=== PATIENT | male | born 1980 | race Caucasian/White ===

== ENCOUNTER 2017-08-11 02:43 | Emergency (ER) | payer SELFPAY ==
[~2017-08-11] VITALS: Ht 177.8 cm; Wt 160.3 kg
[~2017-08-11 02:43] MED LIST: ACET-1175 PO; ADVIN25/60 INH; ALBU1AER9 PO; AMOX1TAB43 PO; GFNSR600 PO; PRED10TA PO
[2017-08-11 02:45] VITALS: TEMP 36.9; Ht 177.8 cm; Wt 160.3 kg
[2017-08-11] MEDS ORDERED: METHYLPREDNISOLONE 125 MG VIAL IV STA (03:02)
[2017-08-11] MEDS ORDERED: ALBUT/IPRATROP 3MG/0.5MG NEB 3 ML VIAL INH ONE (03:15)
[2017-08-11] MEDS ORDERED: SODIUM CHLORIDE 0.9% 1000ML 1,000 ML IV ONE (03:15)
[2017-08-11 03:50] LABS: BASO % 0.2 %; BASO ABS # 0.01 K/uL (0-0.2); EOS % 4.4 %; EOS ABS # 0.27 K/uL (0-0.5); HEMATOCRIT 40.4 % (42-52); HEMOGLOBIN 14.3 g/dL (14.0-18.0); IG# 0.02 K/uL (0.00-0.02); LYMPH % 38.5 %; LYMPH ABS # 2.34 K/uL (1.2-3.4); MEAN CELL VOLUME 87.1 fL (80-100); MEAN CORPUSCULAR HEMOGLOBIN 30.8 pg (25-34); MEAN CORPUSCULAR HGB CONC 35.4 g/dl (32-36); MEAN PLATELET VOLUME 10.4 fL (7.4-10.4); MONO % 9.4 %; MONO ABS # 0.57 K/uL (0.11-0.59); NEUT % 47.2 %; NEUT ABS # 2.87 K/uL (1.4-6.5); PLATELET COUNT 175 K/uL (130-400); RED CELL DISTRIBUTION WIDTH CV 13.1 % (11.5-14.5); RED CELL DISTRIBUTION WIDTH SD 42.1 fL (36.4-46.3); WHITE BLOOD COUNT 6.08 K/uL (4.8-10.8)
[2017-08-11 03:52] VITALS: PULSE 79; O2SAT 98
[2017-08-11] MEDS ORDERED: LEVOFLOXACIN 750 MG TAB PO ONE (04:15)
[2017-08-11] MEDS ORDERED: LEVOFLOXACIN 250 MG TAB ONE (04:16)
[2017-08-11 04:24] LABS: ALBUMIN 3.6 gm/dl (3.4-5.0); CALCIUM 8.8 mg/dl (8.5-10.1); CREATININE 0.94 mg/dl (0.60-1.40); TOTAL PROTEIN 7.4 gm/dl (6.4-8.2)
[2017-08-11 04:30] LABS: POTASSIUM 4.1 mmol/L (3.5-5.1)
[2017-08-11] MEDS ORDERED: LEVO750T23 PO (05:04)
[2017-08-11] MEDS ORDERED: PRED20TA PO (05:04)
[2017-08-11 05:10] VITALS: BP 145/82; PULSE 103; O2SAT 94
--- NOTE | 2017-08-11 05:57 | EMERGENCY ROOM VISIT NOTE ---
History First contact with patient: 02:50 Chief Complaint: RESPIRATORY PROBLEMS Stated Complaint: TROUBLE BREATHING Nursing Triage Summary: Pt became SOB @ work. Pt denies any other discomforts. Pt has h/o sarcoidosis. History of Present Illness The patient is a 37 year old male who presents to the Emergency Room with complaints of chest tightness and shortness of breath that began worsening over the past one to 2 days. The patient has a long-standing history of bronchitis and asthma-like symptoms. 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 He has not had recent fever or chills, but has had a worsening cough. He has been using inhalers at home without relief of symptoms. The patient rates his discomfort an 8/10. Review of Systems More than 10 systems were reviewed and otherwise negative with the exception of history of present illness. Past Medical/Surgical History Medical Problems: (1) Bronchitis (2) Hypoxia (3) Sarcoid Family History No pertinent family history Social History Smoking Status: Current Every Day Smoker Alcohol Use: occasionally Marital Status: single Housing Status: lives with family Occupation Status: employed Current/Historical Medications Scheduled Levofloxacin (Levaquin), 1 TAB PO DAILY Prednisone (Prednisone), 0 PO DAILY Physical Exam Vital Signs Date Time Temp Pulse Resp B/P (MAP) Pulse Ox O2 Delivery O2 Flow Rate FiO2 08/11/17 05:10 103 22 145/82 94 Room Air 08/11/17 04:19 89 16 171/71 97 Mask 8.0 08/11/17 03:52 79 16 98 Room Air 08/11/17 03:43 83 08/11/17 02:45 36.9 89 20 152/85 96 Room Air Physical Exam VITALS: Vitals are noted on the nurse's note and reviewed by myself. Vital signs stable. GENERAL: Well-developed, well-nourished, white male, who is in no acute distress and resting comfortably. Patient is cooperative with the examination. HEAD: Normocephalic atraumatic. EARS: External ear normal. External auditory canals clear, tympanic membranes pearly montgmoery without erythema or effusion bilaterally. EYES: Pupils equal round and reactive to light and accommodation. Conjunctivae without injection, sclerae without icterus. Extraocular movements intact. NOSE: Patent, turbinates without inflammation or discharge. MOUTH: Mucous membranes moist. Tonsils are not enlarged. Pharynx without erythema, blood, or exudate. Uvula midline. Airway patent. NECK: Supple without nuchal rigidity. No lymphadenopathy. No thyromegaly. Cervical spine is nontender. HEART: Regular rate and rhythm without murmurs gallops or rubs. LUNGS: Distant and decreased breath sounds bilateral with left-sided wheezing. After treatment lung sounds are clear with scant scattered rhonchi throughout. ABDOMEN: Positive normal bowel sounds x 4. Soft, nontender, without masses or organomegaly. No guarding or rebound tenderness. MUSCULOSKELETAL: No muscle atrophy, erythema, or edema noted. Full range of motion without joint tenderness in all extremities Medical Decision & Procedures Laboratory Results 08/11/17 03:38 Red Blood Count 4.64, Mean Corpuscular Volume 87.1, Mean Corpuscular Hemoglobin 30.8, Mean Corpuscular Hemoglobin Concent 35.4, Mean Platelet Volume 10.4, Neutrophils (%) (Auto) 47.2, Lymphocytes (%) (Auto) 38.5, Monocytes (%) (Auto) 9.4, Eosinophils (%) (Auto) 4.4, Basophils (%) (Auto) 0.2, Neutrophils # (Auto) 2.87, Lymphocytes # (Auto) 2.34, Monocytes # (Auto) 0.57, Eosinophils # (Auto) 0.27, Basophils # (Auto) 0.01 08/11/17 03:38 Test 08/11/17 03:38 White Blood Count 6.08 K/uL (4.8-10.8) Red Blood Count 4.64 M/uL (4.7-6.1) Hemoglobin 14.3 g/dL (14.0-18.0) Hematocrit 40.4 % (42-52) Mean Corpuscular Volume 87.1 fL (80-100) Mean Corpuscular Hemoglobin 30.8 pg (25-34) Mean Corpuscular Hemoglobin Concent 35.4 g/dl (32-36) Platelet Count 175 K/uL (130-400) Mean Platelet Volume 10.4 fL (7.4-10.4) Neutrophils (%) (Auto) 47.2 % Lymphocytes (%) (Auto) 38.5 % Monocytes (%) (Auto) 9.4 % Eosinophils (%) (Auto) 4.4 % Basophils (%) (Auto) 0.2 % Neutrophils # (Auto) 2.87 K/uL (1.4-6.5) Lymphocytes # (Auto) 2.34 K/uL (1.2-3.4) Monocytes # (Auto) 0.57 K/uL (0.11-0.59) Eosinophils # (Auto) 0.27 K/uL (0-0.5) Basophils # (Auto) 0.01 K/uL (0-0.2) RDW Standard Deviation 42.1 fL (36.4-46.3) RDW Coefficient of Variation 13.1 % (11.5-14.5) Immature Granulocyte % (Auto) 0.3 % Immature Granulocyte # (Auto) 0.02 K/uL (0.00-0.02) Venous Blood pH 7.44 (7.36-7.41) Venous Blood Partial Pressure CO2 39 mmHg (38.0-50.0) Venous Blood Partial Pressure O2 64 mmHg Venous Blood HCO3 26 mmol/L Venous Blood Oxygen Saturation 92.4 % Venous Blood Base Excess 1.6 mEq/L Anion Gap 10.0 mmol/L (3-11) Est Creatinine Clear Calc Drug Dose 162.6 ml/min Estimated GFR () 118.7 Estimated GFR (Non- 102.4 BUN/Creatinine Ratio 17.2 (10-20) Calcium Level 8.8 mg/dl (8.5-10.1) Total Bilirubin 0.4 mg/dl (0.2-1) Aspartate Amino Transf (AST/SGOT) 27 U/L (15-37) Alanine Aminotransferase (ALT/SGPT) 38 U/L (12-78) Alkaline Phosphatase 83 U/L (45-117) Total Protein 7.4 gm/dl (6.4-8.2) Albumin 3.6 gm/dl (3.4-5.0) Globulin 3.8 gm/dl (2.5-4.0) Albumin/Globulin Ratio 0.9 (0.9-2) Chemistry Specimen Hemolysis Medications Administered Medications (Trade) Dose Ordered Sig/Pavel Route Start Time Stop Time Status Last Admin Dose Admin Methylprednisolone Sodium Succinate (Solu-Medrol IV) 125 mg NOW STAT IV 08/11/17 03:02 08/11/17 03:04 DC 08/11/17 03:32 125 MG Sodium Chloride 1,000 ml @ 999 mls/hr Q1H1M ONCE IV 08/11/17 03:15 08/11/17 04:15 DC 08/11/17 03:37 999 MLS/HR Albuterol/ Ipratropium (Duoneb) 12 ml NOW ONCE INH 08/11/17 03:15 08/11/17 03:16 DC 08/11/17 03:15 12 ML Levofloxacin (Levaquin Tab) 750 mg STK-MED ONCE .ROUTE 08/11/17 04:16 08/11/17 04:17 DC 08/11/17 04:19 750 MG ED Course Physical exam and history were performed. Nursing notes, EMR, and Medication List were personally reviewed. Patient appears to have shortness of breath worsening over the past few days. On examination he seems to have decreased breath sounds with some mild wheezing. IV access was established and labs were obtained. The patient was given IV Solu-Medrol and a one-hour DuoNeb. Chest x-ray was performed. The patient's blood work is as above and was reviewed. He is not significantly elevated white blood cell count, gross anemia, bandemia, or significant electrolyte imbalance. X-ray was performed and reviewed by myself and my attending with a questionable right middle lobe pneumonia. The official radiology read is pending at the time of this dictation. On reevaluation the patient had significant improvement of his symptoms after the breathing treatment and steroids. I will start him on a course of Levaquin and prednisone. He feels well for discharge home and this seems reasonable. The patient is to follow with his primary care physician for further care and management. The patient was certainly invited back to the ER with any new, worsening, or concerning symptoms. The chart was completed utilizing [employer] Speech Voice Recognition Software. Grammatical errors, random word insertions, pronoun errors, and incomplete sentences are an occasional consequence of this system due to software limitations, ambient noise, and hardware issues. Any formal questions or concerns about the content, text, or information contained within the body of this dictation should be directly addressed to the provider for clarification. . Medical Decision Differential diagnosis: Etiologies such as infections, reactive airway disease, pneumonia, pneumothorax , COPD, CHF, cardiac ischemia, pulmonary embolism, musculoskeletal, gastrointestinal, as well as others were entertained. Impression Primary Impression: Pneumonia Additional Impression: Shortness of breath Departure Information Dispostion Home / Self-Care Condition FAIR Prescriptions Prednisone (Prednisone) 20 Mg Tab 0 PO DAILY, #18 TAB 3 DAILY FOR 3 DAYS, THEN 2 DAILY FOR 3 DAYS, THEN 1 DAILY FOR 3 DAYS. Prov: Michael Lauren PA-C 08/11/17 Levofloxacin (LEVAQUIN) 750 Mg Tab 1 TAB PO DAILY for 10 Days, #10 TAB Prov: Michael Lauren PA-C 08/11/17 Forms HOME CARE DOCUMENTATION FORM, Work Instructions, Additional Instructions: Patient was seen and evaluated today in the emergency department fo medical care. Return to work on 08/15/2017. Please excuse. IMPORTANT VISIT INFORMATION Patient Instructions My [facility] Additional Instructions You were seen and evaluated today on an emergency basis only. This is not a substitute for, or an effort to provide, complete comprehensive medical care. It is not possible to recognize and treat all injuries or illnesses in a single emergency department visit. For this reason it is recommended that you followup with your primary care physician this week for recheck of your condition. Take Levaquin 750 mg daily for the next 10 days. Take prednisone as prescribed Continue your inhalers at home You are welcome to return to the emergency department anytime with new, worsening, or concerning symptoms. Work Instructions Additional Work Instructions: Patient was seen and evaluated today in the emergency department for medical care. Return to work on 08/15/2017. Please excuse. Problem Qualifiers
--- NOTE | 2017-08-11 06:51 | DIAGNOSTIC IMAGING REPORT ---
CHEST 2 VIEWS ROUTINE CLINICAL HISTORY: Shortness of breath COMPARISON STUDY: 07/31/2015 FINDINGS: The cardiac and mediastinal contours are normal. There is no evidence of focal pulmonary consolidation. There is no evidence of failure. No pleural effusions are visualized.[Rounded within both mid to lower lung zones are felt to represent nipple shadows. IMPRESSION: No active disease in the chest. Electronically signed by: Vahid Chin M.D. 08/11/2017 6:49 AM Dictated Date/Time: 08/11/2017 6:49 AM
== END 2017-08-11 05:21 | disposition home or self-care (01) ==
LOC: C.EDB 02:44
DX: J18.9 Pneumonia, unspecified organism (principal); F17.200 Nicotine dependence, unspecified, uncomplicated; Z87.09 Personal history of other diseases of the respiratory system

== ENCOUNTER 2018-08-17 10:31 | Observation (INO) ==
[2018-08-17 11:51] LABS: Basophils # (auto) 0.03 K/uL (0-0.2); Basophils % (auto) 0.5 %; Eosinophils # (auto) 0.27 K/uL (0-0.5); Eosinophils % (auto) 4.1 %; Hematocrit (blood only) 45.1 % (42-52); Hemoglobin 15.6 g/dL (14.0-18.0); Immature Granulocytes # (auto) 0.03 K/uL (0.00-0.02); Immature Granulocytes % (auto) 0.5 %; Lymphocytes % (auto) 30.3 %; Mean Corpuscular Hgb Conc 34.6 g/dL (32-36); Mean Corpuscular Volume 88.3 fL (80-100); Mean Platelet Volume 10.7 fL (7.4-10.4); Monocytes # (auto) 0.67 K/uL (0.11-0.59); Monocytes % (auto) 10.2 %; Neutrophils % (auto) 54.4 %; Platelet Count 201 K/uL (130-400); RDW Coefficient of Variation 13.3 % (11.5-14.5); RDW Standard Deviation 43.3 fL (36.4-46.3); Red Blood Count 5.11 M/uL (4.7-6.1)
[2018-08-17] MEDS ORDERED: ACETAMINOPHEN 1,000 MG/100 ML VIAL IV STA (12:11)
[2018-08-17] MEDS ORDERED: SODIUM CHLORIDE 0.9% 1000ML 1,000 ML IV ONE (12:11)
[2018-08-17 12:16] LABS: Albumin Globulin Ratio 0.9 (0.9-2); Albumin Level 3.5 gm/dl (3.4-5.0); BUN Creatinine Ratio 13.9 (10-20); Bilirubin,Total 0.4 mg/dl (0.2-1); Calcium 8.4 mg/dl (8.5-10.1); Creatinine Clr Calc Pharmacy 156.9 ml/min; Est GFR (African American) 108.1; Est GFR (Non-African American) 93.3; Globulin 3.8 gm/dl (2.5-4.0); Total Protein 7.3 gm/dl (6.4-8.2)
[2018-08-17] MEDS ORDERED: OPTIRAY 320 125ml IV PRN (13:03)
--- NOTE | 2018-08-17 13:24 | CT Scan Report ---
ABDOMEN AND PELVIS CT WITH IV CONTRAST CT DOSE: 3425.36 mGy.cm HISTORY: Acute periumbilical abdominal pain with recent abdominal trauma periumbilical pain, blunt a nterior abd trauma TECHNIQUE: Multiaxial CT images of the abdomen and pelvis were performed following the use of intrave nous contrast. A dose lowering technique was utilized adhering to the principles of ALARA. COMPARISON STUDY: Chest CT 08/11/2017, spleen ultrasound 08/01/2015. FINDINGS: The imaged lung bases are generally clear with minimal subsegmental basilar groundglass densities sug gestive of probable atelectasis. There is no pneumatosis or pneumoperitoneum. The imaged inferior car diac chambers appear unremarkable. The liver is mildly enlarged with suggested hepatic steatosis. No evidence of cirrhosis. The spleen m easures within the upper limits of normal. The pancreas and adrenal glands are unremarkable. Contract ed gallbladder. No intrahepatic biliary ductal dilation identified. The kidneys, ureters and urinary bladder are within normal limits. The prostate appears unremarkable. Aorta and IVC are within normal limits. No adenopathy by CT size criteria. Nonspecific mildly prominent iliac chain and inguinal lymp h nodes. No bowel obstruction or focal bowel wall thickening. No ascites or mesenteric inflammation. The appen bryan is not definitively seen. No secondary signs of acute appendicitis. 2.1 cm fat filled periumbilic al hernia. No bowel extension into the hernia sac. There is moderate inflammation within the adjacent mesenteric/omental fat. Soft tissues are otherwise unremarkable. The bones appear to be intact. Ther e are no suspicious lytic or blastic bony lesions identified. Posterior disc osteophyte complex forma tion at L5-S1. Osteophytic spurring about the bilateral femoral acetabular joints. IMPRESSION: 1. No bowel obstruction or focal bowel wall thickening. 2. Fat filled periumbilical hernia contains moderately inflamed mesenteric fat suggestive of nonreduc ible hernia with fat necrosis. No bowel extension into the hernia sac. Correlate clinically. 3. Hepatomegaly with hepatic steatosis. 4. Additional findings as above. Electronically signed by: Praveen Courtney M.D. 08/17/2018 1:23 PM
--- NOTE | 2018-08-17 16:38 | History & Physical Report ---
Date of Service August 17, 2018 Assessment & Plan (1) Incarcerated umbilical hernia: Vitals stable other than hypertensive most likely secondary to pain afebrile, no leukocytosis abdomen is soft, visible bulge at umbilicus, very tender on palpation, unable to reduce CT scan showing evidence of fat incarceration with possible fat necrosis given inflammatory findings. Plan: Will need repair of hernia given incarceration and currently symptomatic with pain. Discussed options of close outpatient repair in a week or two vs admitting to hospital under observation and repairing hernia tomorrow with Dr. Covarrubias. Also discussed types of surgical repair including primary repair or repair with mesh. Informed patient if there is a lot of inflammation or any signs of infection we would not repair with mesh and the risk of hernia recurrence is larger without mesh. He will also have restriction of no heavy lifting over 10 pounds for 6 weeks. Patient would prefer repair now as he is having moderate pain. Will admit to med/surg under observation IV fluids, PO Tylenol/Percocet and breakthrough Morphine prn pain, IV Zofran prn nausea, low fiber diet and npo after midnight Scheduled for OR tomorrow morning at [address] Covarrubias. Discussed patient with Dr. Covarrubias who will evaluate patient later this evening. History of Present Illness Chief Complaint: abdominal pain, abdominal bulge Primary Care Provider: Brent Sommer MD Marcell is a pleasant 38 year-old male who presented to the emergency department today with complaint of sudden abdominal pain and bulge that started last night after lifting a heavy piece of machinery weighing a few hundred pounds. States he was moving the piece of equipment and suddenly felt a popping sensation in his abdomen and then immediate pain. States he had some generalized abdominal pain around his belly button and then slowly concentrated just at the bulge. States he did not notice a bulge before. No previous known hernias other than an inguinal hernia repair as an . Denies of any fever, chills, nausea, vomiting, change in bowel habits, diarrhea, constipation, blood in stools, chest pain, shortness of breath, increasing generalized abdominal pain. No prior history of abdominal surgeries. No blood thinning agents. Allergies Allergy/AdvReac Type Severity Reaction Status Date / Time No Known Allergies Allergy Unverified 08/17/18 12:21 Home Medications Home Medications Medication Instructions Recorded Confirmed Type No Known Home Medications 08/17/18 08/17/18 History Past Med/Surg History Medical History PNA (pneumonia) (Resolved) Sarcoid (Resolved) Social History Preferred Language: Kinyarwanda Communication Ability: Effective Handle Bar Assembler Required: No Beliefs That Will Affect Care: None Current Living Situation: Significant Other Current Living Situation Comment: [facility] Other Information That Helps Us Care for You: No Feels Safe at Home: Yes Safety Concerns: Feels Safe At This Time Smoking Status: Former smoker Hx Alcohol Use: No Hx Substance Use: No Review of Systems All systems reviewed & are unremarkable except as noted in HPI & below Physical Exam Vital Signs (Past 24 Hours): Last Vital Signs Temp 36.6 C 08/17/18 10:51 Pulse 65 08/17/18 16:17 Resp 18 08/17/18 16:17 BP 175/96 H 08/17/18 16:17 Pulse Ox 96 08/17/18 16:17 Constitutional: WD/WN, vitals as above + morbidly obese; no acute distress and not ill appearing Respiratory: normal respiratory effort, lungs clear to auscultation no respiratory distress Gastrointestinal (Abdomen): Inspection/Auscultation: abdomen normal to inspection; abdomen not distended Percussion/Palpation: + hernia (umbilical hernia, tenderness on examination, nonreducible) Skin: no rashes, warm and dry (no ecchymosis or skin changes at umbilical hernia) Psychiatric: A+Ox3, euthymic affect Results & Data Laboratory Results 08/17/18 08/17/18 08/17/18 Range/Units 14:02 12:46 12:27 WBC (4.8-10.8) K/uL RBC (4.7-6.1) M/uL Hgb (14.0-18.0) g/dL Hct (42-52) % MCV (80-100) fL MCH (25-34) pg MCHC (32-36) g/dL RDW Std Deviation (36.4-46.3) fL RDW Coeff of Maria D (11.5-14.5) % Plt Count (130-400) K/uL MPV (7.4-10.4) fL Immature Gran % (Auto) % Neut % (Auto) % Lymph % (Auto) % Lucas % (Auto) % Eos % (Auto) % Baso % (Auto) % Immature Gran # (Auto) (0.00-0.02) K/uL Neut # (Auto) (1.4-6.5) K/uL Lymph # (Auto) (1.2-3.4) K/uL Lucas # (Auto) (0.11-0.59) K/uL Eos # (Auto) (0-0.5) K/uL Baso # (Auto) (0-0.2) K/uL Sodium (136-145) mmol/L Potassium Cancelled Cancelled Cancelled (3.5-5.1) mmol/L Chloride (98-107) mmol/L Carbon Dioxide (21-32) mmol/L Anion Gap (3-11) BUN (7-18) mg/dl Creatinine (0.6-1.4) mg/dl Est Cr Clr Drug Dosing ml/min Est GFR ( Amer) Est GFR (Non-Af Amer) BUN/Creatinine Ratio (10-20) Glucose (70-99) mg/dl Calcium (8.5-10.1) mg/dl Total Bilirubin (0.2-1) mg/dl AST Cancelled Cancelled Cancelled (15-37) U/L ALT (12-78) U/L Alkaline Phosphatase (45-117) U/L Total Protein (6.4-8.2) gm/dl Albumin (3.4-5.0) gm/dl Globulin (2.5-4.0) gm/dl Albumin/Globulin Ratio (0.9-2) Lipase (73-393) U/L 08/17/18 08/17/18 Range/Units 11:40 11:40 WBC 6.60 (4.8-10.8) K/uL RBC 5.11 (4.7-6.1) M/uL Hgb 15.6 (14.0-18.0) g/dL Hct 45.1 (42-52) % MCV 88.3 (80-100) fL MCH 30.5 (25-34) pg MCHC 34.6 (32-36) g/dL RDW Std Deviation 43.3 (36.4-46.3) fL RDW Coeff of Maria D 13.3 (11.5-14.5) % Plt Count 201 (130-400) K/uL MPV 10.7 H (7.4-10.4) fL Immature Gran % (Auto) 0.5 % Neut % (Auto) 54.4 % Lymph % (Auto) 30.3 % Lucas % (Auto) 10.2 % Eos % (Auto) 4.1 % Baso % (Auto) 0.5 % Immature Gran # (Auto) 0.03 H (0.00-0.02) K/uL Neut # (Auto) 3.60 (1.4-6.5) K/uL Lymph # (Auto) 2.00 (1.2-3.4) K/uL Lucas # (Auto) 0.67 H (0.11-0.59) K/uL Eos # (Auto) 0.27 (0-0.5) K/uL Baso # (Auto) 0.03 (0-0.2) K/uL Sodium 137 (136-145) mmol/L Potassium (3.5-5.1) mmol/L Chloride 105 (98-107) mmol/L Carbon Dioxide 27 (21-32) mmol/L Anion Gap 5.0 (3-11) BUN 14 (7-18) mg/dl Creatinine 1.01 (0.6-1.4) mg/dl Est Cr Clr Drug Dosing 156.9 ml/min Est GFR ( Amer) 108.1 Est GFR (Non-Af Amer) 93.3 BUN/Creatinine Ratio 13.9 (10-20) Glucose 141 H (70-99) mg/dl Calcium 8.4 L (8.5-10.1) mg/dl Total Bilirubin 0.4 (0.2-1) mg/dl AST (15-37) U/L ALT 50 (12-78) U/L Alkaline Phosphatase 77 (45-117) U/L Total Protein 7.3 (6.4-8.2) gm/dl Albumin 3.5 (3.4-5.0) gm/dl Globulin 3.8 (2.5-4.0) gm/dl Albumin/Globulin Ratio 0.9 (0.9-2) Lipase 478 H (73-393) U/L Diagnostic Findings ABDOMEN AND PELVIS CT WITH IV CONTRAST CT DOSE: 3425.36 mGy.cm HISTORY: Acute periumbilical abdominal pain with recent abdominal trauma periumbilical pain, blunt anterior abd trauma TECHNIQUE: Multiaxial CT images of the abdomen and pelvis were performed following the use of intravenous contrast. A dose lowering technique was utilized adhering to the principles of ALARA. COMPARISON STUDY: Chest CT 08/11/2017, spleen ultrasound 08/01/2015. FINDINGS: The imaged lung bases are generally clear with minimal subsegmental basilar groundglass densities suggestive of probable atelectasis. There is no pneumatosis or pneumoperitoneum. The imaged inferior cardiac chambers appear unremarkable. The liver is mildly enlarged with suggested hepatic steatosis. No evidence of cirrhosis. The spleen measures within the upper limits of normal. The pancreas and adrenal glands are unremarkable. Contracted gallbladder. No intrahepatic biliary ductal dilation identified. The kidneys, ureters and urinary bladder are within normal limits. The prostate appears unremarkable. Aorta and IVC are within normal limits. No adenopathy by CT size criteria. Nonspecific mildly prominent iliac chain and inguinal lymph nodes. No bowel obstruction or focal bowel wall thickening. No ascites or mesenteric inflammation. The appendix is not definitively seen. No secondary signs of acute appendicitis. 2.1 cm fat filled periumbilical hernia. No bowel extension into the hernia sac. There is moderate inflammation within the adjacent mesenteric/omental fat. Soft tissues are otherwise unremarkable. The bones appear to be intact. There are no suspicious lytic or blastic bony lesions identified. Posterior disc osteophyte complex formation at L5-S1. Osteophytic spurring about the bilateral femoral acetabular joints. IMPRESSION: 1. No bowel obstruction or focal bowel wall thickening. 2. Fat filled periumbilical hernia contains moderately inflamed mesenteric fat suggestive of nonreducible hernia with fat necrosis. No bowel extension into the hernia sac. Correlate clinically. 3. Hepatomegaly with hepatic steatosis. 4. Additional findings as above. Code Status & VTE Plan VTE Prophylaxis Plan VTE Prophylaxis will be ordered: Yes Supervising Physician Co-Signing Physician Notes Patient is a 38 yo male who presents with an umbilical hernia. He states while moving things at work he had sudden sharp periumbilical pain. He denies nausea and vomiting. Prior to this he has never noted a lump in the area, no prior history of hernias. He presented to the ER where CT scan was obtained showing a fat containing umbilical hernia. Abdomen is soft, nondistended, soft umbilical hernia that is partially reducible and mildly tender, no erythema of surroundings skin, though in the LLQ he has chronic dry skin with associated mild erythema. The pt states this has been present for a long time. Discussed with the patient and his family the various options including emergent vs urgent surgery vs observation. Discussed the findings on CT scan concerning possible incarceration of fat but no apparent bowel involvement. Discussed etiology of hernias, including but not limited to potential to enlarge, potential for bowel to become strangulated. Discussed laparoscopic vs open repair and primary repair vs repair with mesh, including decreased chance of recurrence with mesh but increased risk of infection with subsequent need for removalof mesh. Discussed increased possibility of needing to repair the hernia primarily given the acute setting. Patient has opted to proceed with open umbilical hernia repair tomorrow, with possible mesh, possible bowel resection. Pt agrees with plan to repair with mesh if possible, but final decision will be made intraoperatively and if there is any concern for ischemia or infection will repair primarily. Risks discussed include but are not limited to recurrent hernia, pain, scarring, bleeding, mesh infection, need for mesh removal, blood clots, breathing problems, heart attack, stroke, and . Discussed the patient's increased risk of bela-operative complications, especially infection and recurrence, given his obesity and tobacco use. 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 - NPO with IVF after Midnight - TEDS and SCDs - Discussed perioperative management with the patient, including: - No lifting > 10 pounds for 6 weeks post-op, driving restrictions - Expected post-operative pain and management options, with alternating scheduled tylenol and ibuprofen around the clock for the first 2-3 days post-op, but will provide small script for Oxy IR for breakthrough pain should it be needed, applying ice to the area but must be over a towel, recommendation to take a stool softener - Explained tendency for pts to not take deep breaths increasing the chance of atelectasis and pneumonia and importance of using IS to decrease this risk
[2018-08-17] MEDS ORDERED: OXYCODONE/ACETAMINOPHEN 5mg/325mg TAB PO PRN (17:11)
[2018-08-17] MEDS ORDERED: ACETAMINOPHEN 325 MG TAB PO PRN (17:11)
[2018-08-17] MEDS ORDERED: MoRPHine SULFATE 4 MG/ML 1 ML CARP\\VIAL IV PRN ×3 (17:11)
[2018-08-17] MEDS ORDERED: ONDANSETRON INJ 2 MG/ML 2 ML VIAL IV PRN (17:11)
[2018-08-17] MEDS: LACTATED RINGER'S 1,000 ML IV SCH (17:57)
--- NOTE | 2018-08-17 19:05 | Emergency Department Note ---
Entered by Louann Pinedo acting as a scribe for Johan Bingham MD History of Present Illness General Chief complaint: Abdominal Pain Stated complaint: BURNING PAIN IN STOMACH Time Seen by Provider: 08/17/18 11:36 Source: patient History of Present Illness Provider complaint: abdominal pain Onset (ago): hour(s) (since midnight) Location: abdomen Maximum Pain Intensity: 7 Current Pain Intensity: 6 Quality: + sharp Associated symptoms: + denies other symptoms (denies urinary symptoms or problems with bowel movements ); no fever/chills and no nausea/vomiting The patient is a 38 year old male who presents to the Emergency Room with complaints of abdominal pain since midnight. He rates his pain at a 6/10. The patient states that he was pushing a 600 pound machine at work at midnight when he felt a "pop." He reports having a sharp pain there currently. He denies having fevers, chills, nausea, and vomiting. He denies having urinary symptoms or problems with bowel movements. The patient states that he did not take anything for his pain. The patient states that he is not on any blood thinners. 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 and A total of 10 systems reviewed and were otherwise negative Physical Exam Vital Signs Vital Signs - 24 hr 08/17/18 10:51 08/17/18 12:01 08/17/18 13:29 Temperature 36.6 C Temperature Source Oral Sepsis Recent Fever Within 48 Hours No Sepsis New/Unexplained Change in Mental Status No Sepsis Action Taken by Nursing No Action Required Pulse Rate 84 Pulse Rate [Finger] 78 67 Pulse Rhythm [Finger] Pulse Strength [Finger] Respiratory Rate 20 24 20 Respiratory Effort / Characteristics Respiratory Depth Respiratory Pattern Blood Pressure 167/104 H Blood Pressure [Right Arm] 160/95 H 137/83 Blood Pressure Mean 125 Blood Pressure Mean [Right Arm] 116 101 Blood Pressure Position [Right Arm] Pulse Oximetry 99 96 96 Oxygen Delivery Method Room Air Room Air Room Air 08/17/18 14:18 08/17/18 15:14 08/17/18 16:17 Temperature Temperature Source Sepsis Recent Fever Within 48 Hours Sepsis New/Unexplained Change in Mental Status Sepsis Action Taken by Nursing Pulse Rate Pulse Rate [Finger] 67 67 65 Pulse Rhythm [Finger] Pulse Strength [Finger] Respiratory Rate 20 14 18 Respiratory Effort / Characteristics Respiratory Depth Respiratory Pattern Blood Pressure Blood Pressure [Right Arm] 155/101 H 175/96 H 153/88 H Blood Pressure Mean Blood Pressure Mean [Right Arm] 119 122 109 Blood Pressure Position [Right Arm] Pulse Oximetry 96 96 96 Oxygen Delivery Method Room Air Room Air 08/17/18 17:05 Temperature 36.7 C Temperature Source Oral Sepsis Recent Fever Within 48 Hours Sepsis New/Unexplained Change in Mental Status Sepsis Action Taken by Nursing Pulse Rate Pulse Rate [Finger] 66 Pulse Rhythm [Finger] Regular Pulse Strength [Finger] Normal Respiratory Rate 18 Respiratory Effort / Characteristics Non-Labored Spontaneous Normal for Patient Respiratory Depth Normal Respiratory Pattern Regular Blood Pressure Blood Pressure [Right Arm] 146/106 H Blood Pressure Mean Blood Pressure Mean [Right Arm] 119 Blood Pressure Position [Right Arm] Lying Pulse Oximetry 97 Oxygen Delivery Method Room Air GENERAL: Awake, alert, relatively well-appearing, in no distress HENT: Normocephalic, atraumatic. Oropharynx unremarkable. EYES: Normal conjunctiva. Sclera non-icteric. NECK: Supple. No nuchal rigidity. FROM. No JVD. RESPIRATORY: Clear to auscultation. CARDIAC: Regular rate, normal rhythm. Extremities warm and well perfused. Pulses equal. ABDOMEN: Soft. No rebound or guarding. Umbilical hernia that is soft. Mild periumbilical tenderness. RECTAL: Deferred. MUSCULOSKELETAL: Chest examination reveals no tenderness. The back is sym metrical on inspection without obvious abnormality. There is no CVA tenderness to palpation. No joint edema. LOWER EXTREMITIES: Calves are equal size bilaterally and non-tender. No edema. No discoloration. NEURO: Normal sensorium. No sensory or motor deficits noted. SKIN: No rash or jaundice noted. Course 1150: The patient was evaluated by Yary Mcnulty-Medical Student under my direction. 1216: Past medical records reviewed. The patient was evaluated in room C8, and a complete history and physical examination were performed. 1416: I discussed the patient's case with Dr. Covarrubias-General Surgery who said that she will send someone down to see the patient. 1534: The patient will be further evaluated by surgery who will take the patient to the OR tomorrow. 1540: The patient verbalized agreement and understanding of the treatment plan. Consultations Consultation #1: Dr. Covarrubias-General Surgery Time: 14:16 Administered Medications Lactated Ringer's (Lr) 1,000 mls @ 125 mls/hr IV .Q8H CHENCHO Stop: 09/16/18 17:10 Last Admin: 08/17/18 17:57 Dose: 125 mls/hr Documented by: [id number] Discontinued Medications Acetaminophen (Ofirmev) 1,000 mg in 100 mls @ 400 mls/hr IV NOW STA Stop: 08/17/18 12:25 Last Infusion: 08/17/18 13:43 Dose: 0 mls/hr Documented by: [id number] Admin: 08/17/18 13:28 Dose: 400 mls/hr Documented by: [id number] Sodium Chloride (Nss 1000ml) 1,000 mls @ 999 mls/hr IV .Q1H1M ONE Stop: 08/17/18 13:11 Last Infusion: 08/17/18 14:29 Dose: 0 mls/hr Documented by: [id number] Admin: 08/17/18 13:28 Dose: 999 mls/hr Documented by: [id number] Ioversol (Optiray 320 125ml) 94 ml IV ONCE PRN PRN Reason: Interaction Checking Stop: 08/21/18 13:02 Last Admin: 08/17/18 13:03 Dose: 1 ml Documented by: [id number] Medical Decision Making Differential Diagnosis Differential diagnosis: Etiologies such as biliary colic, cholecystitis, hepatitis, pancreatitis, cardiac disease, pancreatitis, gastritis, peptic ulcer disease, appendicitis, cystitis, diverticulitis, mesenteric ischemia, inflammatory bowel disease, ile us, bowel obstruction, testicular torsion, aortic pathology, shingles, as well as others were considered. Medical Records Attestation: I reviewed the patient's medical records. Home Medications Current Medication List: was personally reviewed by me Laboratory Data Attestation: I reviewed the patient's lab results. Result diagrams: 08/17/18 11:40 08/17/18 11:40 Lab Results 08/17/18 08/17/18 08/17/18 Range/Units 11:40 11:40 12:27 WBC 6.60 (4.8-10.8) K/uL RBC 5.11 (4.7-6.1) M/uL Hgb 15.6 (14.0-18.0) g/dL Hct 45.1 (42-52) % MCV 88.3 (80-100) fL MCH 30.5 (25-34) pg MCHC 34.6 (32-36) g/dL RDW Std Deviation 43.3 (36.4-46.3) fL RDW Coeff of Maria D 13.3 (11.5-14.5) % Plt Count 201 (130-400) K/uL MPV 10.7 H (7.4-10.4) fL Immature Gran % (Auto) 0.5 % Neut % (Auto) 54.4 % Lymph % (Auto) 30.3 % Dougherty % (Auto) 10.2 % Eos % (Auto) 4.1 % Baso % (Auto) 0.5 % Immature Gran # (Auto) 0.03 H (0.00-0.02) K/uL Neut # (Auto) 3.60 (1.4-6.5) K/uL Lymph # (Auto) 2.00 (1.2-3.4) K/uL Dougherty # (Auto) 0.67 H (0.11-0.59) K/uL Eos # (Auto) 0.27 (0-0.5) K/uL Baso # (Auto) 0.03 (0-0.2) K/uL Sodium 137 (136-145) mmol/L Potassium Cancelled (3.5-5.1) mmol/L Chloride 105 (98-107) mmol/L Carbon Dioxide 27 (21-32) mmol/L Anion Gap 5.0 (3-11) BUN 14 (7-18) mg/dl Creatinine 1.01 (0.6-1.4) mg/dl Est Cr Clr Drug Dosing 156.9 ml/min Est GFR ( Amer) 108.1 Est GFR (Non-Af Amer) 93.3 BUN/Creatinine Ratio 13.9 (10-20) Glucose 141 H (70-99) mg/dl Calcium 8.4 L (8.5-10.1) mg/dl Total Bilirubin 0.4 (0.2-1) mg/dl AST Cancelled (15-37) U/L ALT 50 (12-78) U/L Alkaline Phosphatase 77 (45-117) U/L Total Protein 7.3 (6.4-8.2) gm/dl Albumin 3.5 (3.4-5.0) gm/dl Globulin 3.8 (2.5-4.0) gm/dl Albumin/Globulin Ratio 0.9 (0.9-2) Lipase 478 H (73-393) U/L 08/17/18 08/17/18 Range/Units 12:46 14:02 WBC (4.8-10.8) K/uL RBC (4.7-6.1) M/uL Hgb (14.0-18.0) g/dL Hct (42-52) % MCV (80-100) fL MCH (25-34) pg MCHC (32-36) g/dL RDW Std Deviation (36.4-46.3) fL RDW Coeff of Maria D (11.5-14.5) % Plt Count (130-400) K/uL MPV (7.4-10.4) fL Immature Gran % (Auto) % Neut % (Auto) % Lymph % (Auto) % Dougherty % (Auto) % Eos % (Auto) % Baso % (Auto) % Immature Gran # (Auto) (0.00-0.02) K/uL Neut # (Auto) (1.4-6.5) K/uL Lymph # (Auto) (1.2-3.4) K/uL Dougherty # (Auto) (0.11-0.59) K/uL Eos # (Auto) (0-0.5) K/uL Baso # (Auto) (0-0.2) K/uL Sodium (136-145) mmol/L Potassium Cancelled Cancelled (3.5-5.1) mmol/L Chloride (98-107) mmol/L Carbon Dioxide (21-32) mmol/L Anion Gap (3-11) BUN (7-18) mg/dl Creatinine (0.6-1.4) mg/dl Est Cr Clr Drug Dosing ml/min Est GFR ( Amer) Est GFR (Non-Af Amer) BUN/Creatinine Ratio (10-20) Glucose (70-99) mg/dl Calcium (8.5-10.1) mg/dl Total Bilirubin (0.2-1) mg/dl AST Cancelled Cancelled (15-37) U/L ALT (12-78) U/L Alkaline Phosphatase (45-117) U/L Total Protein (6.4-8.2) gm/dl Albumin (3.4-5.0) gm/dl Globulin (2.5-4.0) gm/dl Albumin/Globulin Ratio (0.9-2) Lipase (73-393) U/L Imaging Data Radiologist's Impression: Radiology results as stated below per my review and the radiologist's interpretation: ABDOMEN AND PELVIS CT WITH IV CONTRAST CT DOSE: 3425.36 mGy.cm HISTORY: Acute periumbilical abdominal pain with recent abdominal trauma periumbilical pain, blunt anterior abd trauma TECHNIQUE: Multiaxial CT images of the abdomen and pelvis were performed following the use of intravenous contrast. A dose lowering technique was utili zed adhering to the principles of ALARA. COMPARISON STUDY: Chest CT 08/11/2017, spleen ultrasound 08/01/2015. FINDINGS: The imaged lung bases are generally clear with minimal subsegmental basilar laurent undglass densities suggestive of probable atelectasis. There is no pneumatosis or pneumoperitoneum. The imaged inferior cardiac chambers appear unremarkable. The liver is mildly enlarged with suggested hepatic steatosis. No evidence of cirrhosis. The spleen measures within the upper limits of normal. The pancreas and adrenal glands are unremarkable. Contracted gallbladder. No intrahepatic biliary ductal dilation identified. The kidneys, ureters and urinary bladder are within normal limits. The prostate appears unremarkable. Aorta and IVC are within normal limits. No adenopathy by CT size criteria. Nonspecific mildly prominent iliac chain and inguinal lymph nodes. No bowel obstruction or focal bowel wall thickening. No ascites or mesenteric inflammation. The appendix is not definitively seen. No secondary signs of acute appendicitis. 2.1 cm fat filled periumbilical hernia. No bowel extension into the hernia sac. There is moderate inflammation within the adjacent mesenteric/omental fat. Soft tissues are otherwise unremarkable. The bones appear to be intact. There are no suspicious lytic or blastic bony lesions identified. Posterior disc osteophyte complex formation at L5-S1. Osteophytic spurring about the bilateral femoral acetabular joints. IMPRESSION: 1. No bowel obstruction or focal bowel wall thickening. 2. Fat filled periumbilical hernia contains moderately inflamed mesenteric fat suggestive of nonreducible hernia with fat necrosis. No bowel extension into the hernia sac. Correlate clinically. 3. Hepatomegaly with hepatic steatosis. 4. Additional findings as above. Electronically signed by: Praveen Courtney M.D. 08/17/2018 1:23 PM Blood Pressure Blood Pressure Findings: Elevated blood pressure Blood Pressure Disposition: further management by hospitalist GHISLAINE Narrative The patient is a pleasant 38-year-old gentleman who presents emergency department with a umbilical pain after he was at work last night and a 600 pound object which she was pushing got stuck and he right into it with his abdomen with subsequent tearing umbilical pain per hpi. Arrival patient is in no acute distress, afebrile stable vital signs. On exam patient has an umbilical hernia that is soft but mildly tender. There is also mild periumbilical tenderness. WBC, H/H, platelets wnl. Chemistry without acidosis. LFTs and electrolytes unremarkable. Lipase 400s. CT abdomen pelvis demonstrates fat filled periumbilical hernia with moderately inflamed mesenteric fat suggestive of nonreducible hernia with fat necrosis. No bowel extension into the hernia sac. Case was discussed with Dr. Covarrubias, surgery, and patient was subsequently evaluated by Rosi Vidal, general surgery PAJose, patient was admitted to the surgical service for likely OR tomorrow. Patient was agreeable with this plan. Impression & Plan Incarcerated umbilical hernia Discharge Plan Visit Data *Final* Discharge Date/Time: 08/17/18 16:56 Chief Complaint: Abdominal Pain Stated Complaint: BURNING PAIN IN STOMACH ED Provider: Johan Bingham Discharge Problem: Incarcerated umbilical hernia Patient Disposition: Admitted As Inpatient Discharge Instructions Interventions: ED Discharge Assessment Last Done: 08/17/18 16:56 The scribe's documentation has been prepared under my direction and personally reviewed by me in its entirety. I confirm that the note above accurately reflects all work, treatment, procedures, and medical decision making performed by me.
[2018-08-17 23:05] LABS: Appearance Urine Cloudy (Clear); Bacteria Urine Automated 1+ (Negative); Bilirubin Urine Negative (Negative); Blood Urine Negative (Negative); Color Urine Yellow; Epithelial Cell Urine Auto >30 /lpf (0-5); Glucose Urine UA Negative (Negative); Ketones Urine Negative (Negative); Leukocyte Esterase Urine 2+ (Negative); Nitrite Urine Negative (Negative); Protein Urine Negative (Negative); RBC Urine Automated 0-4 /hpf (0-4); Specific Gravity Urine 1.037 (1.000-1.030); Urobilinogen Urine Negative (Negative); WBC Urine Automated >30 /hpf (0-5)
[2018-08-18] MEDS: LACTATED RINGER'S 1,000 ML IV SCH ×3 (02:11→18:24)
--- NOTE | 2018-08-18 07:43 | Anesthesiology Consultation ---
Date of Service August 18, 2018 Assessment & Plan Chart Review Chart Review: Acceptable Risk for Surgery and Patient NOT seen in Pre Admission Testing Consults Requested none ASA ASA3 Proposed Anesthesia Anesthesia Type: General Risk / Benefits Reviewed With: PT / POA / Parent / Guardian, Accepts Plan and Informed Consent Obtained NPO Date Last Intake of Fluids: 08/17/18 Time Last Intake of Fluids: 23:00 Date Last Intake of Solids: 08/17/18 Time Last Intake of Solids: 18:00 History Surgery Operation Date: 08/18/18 09:00 Proposed Procedures p Open Umbilical Hernia Repair - Gricel Covarrubias MD Height/Weight Height: 1.78 m Weight: 164.6 kg Allergies Allergy/AdvReac Type Severity Reaction Status Date / Time No Known Allergies Allergy Unverified 08/17/18 12:21 Medications Home Medications Medication Instructions Recorded Confirmed Last Taken No Known Home Medications 08/17/18 08/17/18 Unknown Active Medications Generic Name Dose Route Start Last Admin Trade Name Freq PRN Reason Stop Dose Admin Lactated Ringer's 1,000 mls @ 125 mls/hr 08/17/18 17:11 08/18/18 08:49 Lr IV 09/16/18 17:10 0 mls/hr .Q8H CHENCHO Infusion Past Medical History Medical History PNA (pneumonia) (Resolved) 2 years ago Sarcoid (Resolved) Treated with prednisone in 2015. Not taking anything for it anymore CHARO (obstructive sleep apnea) On CPAP Past Surgical History Surgical History History of lung biopsy S/P T&A (status post tonsillectomy and adenoidectomy) Past Anesthesia History No Hx of Anesthesia Complications and No Family Hx of Anesthesia Complications History of PONV No Motion Sickness Screening History of Motion Sickness: No Social History Smoking Status: Former smoker (Still smokes on occasion. Last smoke about 1 week ago.) tobacco type: cigarettes and smokeless tobacco Do You Dip or Chew Tobacco: Yes (Last chew 08/17/18 at 10pm) Smoking End Date: 04/2019 Hx Alcohol Use: Yes Alcohol type: beer alcohol intake frequency: a few times a month Hx Substance Use: No substance use type: does not use Exercise / Class Metabolic Activity II 4-5 Yardwork/Stairs/Walk up hill Physical Exam Vital Signs Last Vital Signs Temp 36.4 C L 08/18/18 08:38 Pulse 65 08/18/18 08:38 Resp 18 08/18/18 08:38 BP 120/63 08/18/18 08:38 Pulse Ox 94 08/18/18 08:38 Constitutional + morbidly obese ENMT Mouth: no TMJ abnormality and no TMJ clicking Thyromental Distance: > or= 3.5 Finger Breadths Mallampati Class: II Neck + thick neck; neck extension not limited Respiratory Auscultation: + wheezes (Some expiratory wheezes noted on posterior lungs bilaterally) Cardiovascular Rate/Rhythm: regular rate and regular rhythm Psychiatric Orientation: alert and oriented x 3 Testing Laboratory Results 08/17/18 11:40 08/17/18 14:02 Urine Color Yellow 08/17/18 Unknown Urine Appearance Cloudy (Clear) H 08/17/18 Unknown Urine pH 7.0 (4.5-7.5) 08/17/18 Unknown Ur Specific [place] 1.037 (1.000-1.030) H 08/17/18 Unknown Urine Protein Negative (Negative) 08/17/18 Unknown Urine Glucose (UA) Negative (Negative) 08/17/18 Unknown Urine Ketones Negative (Negative) 08/17/18 Unknown Urine Nitrite Negative (Negative) 08/17/18 Unknown Ur Leukocyte Esterase 2+ (Negative) H 08/17/18 Unknown Urine WBC (Auto) >30 /hpf (0-5) H 08/17/18 Unknown Urine RBC (Auto) 0-4 /hpf (0-4) 08/17/18 Unknown U Hyaline Cast (Auto) 1-5 /lpf (0-5) 08/17/18 Unknown U Epithel Cells (Auto) >30 /lpf (0-5) H 08/17/18 Unknown Urine Bacteria (Auto) 1+ (Negative) H 08/17/18 Unknown Laboratory Tests 08/17/18 11:40 Sodium 137 Potassium Chloride 105 Carbon Dioxide 27 BUN 14 Creatinine 1.01 Glucose 141 H
[2018-08-18] MEDS ORDERED: ATROPINE SULFATE 0.1 MG/ML 10ML SYR IV PRN (07:44)
[2018-08-18] MEDS ORDERED: PHENYLEPHRINE 100MCG/ML 5ML SYR IV PRN (07:44)
[2018-08-18] MEDS ORDERED: ePHEDrine sulfate 50 MG/ML AMP IV PRN (07:44)
[2018-08-18] MEDS ORDERED: fentaNYL citrate 100 MCG/2 ML VIAL IV PRN (07:44)
[2018-08-18] MEDS ORDERED: PROMETHAZINE HCL 12.5 MG in SODIUM CHLORIDE 0.9% 50 ML IV PRN (07:44)
[2018-08-18] MEDS ORDERED: HYDROmorphone INJ 1 MG/ML SYRINGE IV PRN (07:44)
[2018-08-18] MEDS ORDERED: ONDANSETRON INJ 2 MG/ML 2 ML VIAL IV PRN (07:44)
--- NOTE | 2018-08-18 08:06 | Progress Note ---
Date of Service August 18, 2018 Assessment & Plan (1) Incarcerated umbilical hernia: 38 yo male with a fat containing umbilical hernia. - OR this morning for umbilical hernia repair with possible mesh - Abx safety companion - NPO, IVF - Analgesia PRN - Encourage IS use, ambulation Present on Admission?: Yes Subjective Patient is doing well this morning. Has mild periumbilical pain. Denies nausea and vomiting. Tolerated diet yesterday, has been NPO since midnight. Physical Exam Vital Signs (Past 24 Hours): Last Vital Signs Temp 36.6 C 08/18/18 07:11 Pulse 61 08/18/18 07:11 Resp 18 08/18/18 07:11 BP 107/69 08/18/18 07:11 Pulse Ox 94 08/18/18 07:11 Constitutional: WD/WN, vitals as above no acute distress Respiratory: normal respiratory effort Cardiovascular: Rate/Rhythm: regular rate Gastrointestinal (Abdomen): soft, non-tender, non-distended, protuberent, partially reducible fat containing umbilical hernia
[2018-08-18] MEDS ORDERED: MIDAZOLAM HCL 1 MG/ML 2ML VIAL ONE (09:07)
[2018-08-18] MEDS ORDERED: GLYCOPYRROLATE 0.2 MG/ML VIAL ONE ×2 (09:07→10:48)
[2018-08-18] MEDS ORDERED: ALBUT/IPRATROP 3MG/0.5MG NEB 3 ML VIAL NEB STA (09:07)
[2018-08-18] MEDS ORDERED: DEXAMETHASONE SOD INJ 4 MG/ML VIAL ONE (09:07)
[2018-08-18] MEDS ORDERED: PROPOFOL IV EMULSION 10 MG/ML 20 ML VIAL IV ONE ×2 (09:07→10:48)
[2018-08-18] MEDS ORDERED: ONDANSETRON INJ 2 MG/ML 2 ML VIAL ONE ×2 (09:07→10:48)
[2018-08-18] MEDS ORDERED: LIDOCAINE HCL 2% 2 ML VIAL/AMP(20MG/ML) INFIL ONE (09:07)
[2018-08-18] MEDS ORDERED: NEOSTIGMINE METHYLSULFATE 5 MG/5 ML SYR ONE (09:07)
[2018-08-18] MEDS ORDERED: fentaNYL citrate 100 MCG/2 ML VIAL ONE (09:08)
[2018-08-18] MEDS ORDERED: EPINEPHrine INJ 1 MG/ML AMP ONE (09:18)
[2018-08-18] MEDS ORDERED: BUPIVACAINE 0.25% 30 ML VIAL ONE (09:18)
[2018-08-18] MEDS ORDERED: CEFAZOLIN 3000MG/72.5 ML BAG IV ONE (09:26)
[2018-08-18] MEDS ORDERED: LARYING-O-JET KIT (LTA) ONE (10:04)
[2018-08-18] MEDS ORDERED: SUCCINYLCHOLINE CHLORIDE 20 MG/ML 10 ML VIAL ONE (10:04)
[2018-08-18] MEDS ORDERED: ROCURONIUM BROMIDE 10 MG/ML 5 ML VIAL ONE (10:04)
[2018-08-18] MEDS ORDERED: HYDROmorphone INJ 2 MG/ML SYR/VIAL ONE (10:08)
[2018-08-18] MEDS ORDERED: LABETALOL HCL IV 5 MG/ML 20ML IV ONE (11:36)
--- NOTE | 2018-08-18 12:09 | Post Operative Brief Note ---
Immediate Post Op Note v1 Date of Surgery August 18, 2018 Pre & Post Diagnosis Operation Date: 08/18/18 09:00 Pre-Op Diagnosis: Incarcerated Umbilical Hernia Post-Op Diagnosis: Incarcerated Umbilical Hernia Procedure Operation Date: 08/18/18 09:00 Actual Procedures p Open Umbilical Hernia Repair with Mesh - Gricel Covarrubias MD Surgeon Gricel Covarrubias MD Patient Account Representative Rosi Bennett PA-C Estimated Blood Loss 15 Findings Consistent with Post-Op Diagnosis Fluids 1500 mL Specimens None Anesthesia Type General Complications none Disposition Disposition: Recovery Room
--- NOTE | 2018-08-18 13:53 | Anesthesiology Progress Note ---
Date of Service August 18, 2018 Anesthesia Post Procedure Vital Signs Vital Signs: Temp Pulse Pulse Resp BP BP Pulse Ox 08/18/18 13:44 36.6 C 74 18 130/79 92 08/18/18 13:15 73 15 124/59 L 94 08/18/18 13:00 37.2 C 73 13 123/70 95 08/18/18 12:50 80 17 130/73 92 08/18/18 12:40 75 17 135/68 97 08/18/18 12:30 75 15 139/70 97 08/18/18 12:24 36.6 C 80 21 159/83 H 93 08/18/18 09:03 87 18 95 08/18/18 08:38 36.4 C L 65 18 120/63 94 08/18/18 07:11 36.6 C 61 18 107/69 94 08/17/18 22:09 36.9 C 66 18 147/81 H 97 08/17/18 17:05 36.7 C 66 18 146/106 H 97 08/17/18 16:17 65 18 153/88 H 96 08/17/18 15:14 67 14 175/96 H 96 08/17/18 14:18 67 20 155/101 H 96 Pain Intensity Abdomen: Pain Intensity: 3 Notes Mental Status: alert / awake / arousable Patient Amnestic to Procedure: Yes Nausea / Vomiting: adequately controlled Pain: adequately controlled Airway Patency, RR, SpO2: stable & adequate BP & HR: stable & adequate Hydration State: stable & adequate Anesthetic Complications: no major complications apparent Notes: Awake, doing well. Requiring O2 due to CHARO and continous pulse ox on the floor. Pt without complaints
--- NOTE | 2018-08-18 18:08 | Surgery Progress Note ---
Date of Service August 18, 2018 Assessment & Plan (1) Incarcerated umbilical hernia: POD # 0 s/p open repair with mesh -vitals stable - pain controlled - tolerating diet Plan: Discharge home discharge instructions reviewed f/u surgical office in 2 weeks Rx for Percocet prn pain Supervising Physician Co-Signing Physician Notes I agree with the above assessment by Rosi Bennett PA-C. Subjective POD # 0 s/p open umbilical hernia repair doing well pain moderate but controlled with Percocet (just given) no nausea or vomiting tolerated diet ready to go home Physical Exam Vital Signs (Past 24 Hours): Last Vital Signs Temp 36.5 C 08/18/18 17:47 Pulse 94 H 08/18/18 17:47 Resp 16 08/18/18 17:47 BP 134/87 08/18/18 17:47 Pulse Ox 95 08/18/18 17:47 Constitutional: WD/WN, vitals as above + morbidly obese Psychiatric: A+Ox3, euthymic affect
--- NOTE | 2018-08-19 08:31 | Discharge Summary ---
Date of Service August 23, 2018 Admission HPI Per Admitting Provider Marcell is a pleasant 38 year-old male who presented to the emergency department today with complaint of sudden abdominal pain and bulge that started last night after lifting a heavy piece of machinery weighing a few hundred pounds. States he was moving the piece of equipment and suddenly felt a popping sensation in his abdomen and then immediate pain. States he had some generalized abdominal pain around his belly button and then slowly concentrated just at the bulge. States he did not notice a bulge before. No previous known hernias other than an inguinal hernia repair as an infant. Denies of any fever, chills, nausea, vomiting, change in bowel habits, diarrhea, constipation, blood in stools, chest pain, shortness of breath, increasing generalized abdominal pain. No prior history of abdominal surgeries. No blood thinning agents. Discharge Data Consultations 08/17/18 15:32 ED Decision to Admit Stat Procedures Performed Operation Date: 08/18/18 09:00 Actual Procedures p Open Umbilical Hernia Repair with Mesh - Gricel Covarrubias MD
--- NOTE | 2018-08-19 08:31 | Operative Report ---
Post Operative Report Pre & Post Diagnosis Operation Date: 08/18/18 09:00 Pre-Op Diagnosis: Incarcerated Umbilical Hernia Post-Op Diagnosis: Incarcerated Umbilical Hernia Procedure Operation Date: 08/18/18 09:00 Actual Procedures p Open Umbilical Hernia Repair with Mesh - Gricel Covarrubias MD Surgeon Gricel Covarrubias MD Identifier Horse Rosi Bennett PA-C Estimated Blood Loss 15 Findings Consistent with Post-Op Diagnosis Fluids 1500 mL Specimens None Drains None Anesthesia Type General Complications none Disposition Disposition: Recovery Room Indications The patient is a 38 yo male who presented with an fat containing umbilical hernia. Discussed with the patient and his family the various options including emergent vs urgent surgery vs observation. Discussed the findings on CT scan concerning possible incarceration of fat but no apparent bowel involvement. Discussed etiology of hernias, including but not limited to potential to enlarge, potential for bowel to become strangulated. Discussed laparoscopic vs open repair and primary repair vs repair with mesh, including decreased chance of recurrence with mesh but increased risk of infection with subsequent need for removal of mesh. Discussed increased possibility of needing to repair the hernia primarily given the acute setting. Patient has opted to proceed with open umbilical hernia repair tomorrow, with possible mesh, possible bowel resection. Pt agrees with plan to repair with mesh if possible, but final decision will be made intraoperatively and if there is any concern for ischemia or infection will repair primarily. Risks discussed include but are not limited to recurrent hernia, pain, scarring, bleeding, mesh infection, need for mesh removal, blood clots, breathing problems, heart attack, stroke, and . Discussed the patient's increased risk of bela-operative complications, especially infection and recurrence, given his obesity and tobacco use. Pt voiced understanding of the above, all questions were answered to apparent satisfaction, and the patient freely signed consent Description of Procedure The patient was taken to the operating room and placed in the supine position. Pre-operative antibiotics were administered and SCDs were on and working. General anesthesia was induced. The patient was prepped and draped in the usual sterile manner. A timeout was held confirming the correct patient, procedure, and necessary equipment. The hernia was reduced. Local anesthetic was injected at the marked site for incision inferior to the umbilicus. A curvilinear incision was made using a scalpel. This was carried down through the subcutaneous tissue down to the fascia with electrocautery. The fascial defect was approximately 2.5 cm in diameter. The hernia sac was freed from the umbilical stalk. The fascial edges were grasped with Kochers. A preperitoneal plane was developed extending past the fascial edge by a few centimeters. A finger was able to sweep the area, and there were no adhesions and no additional defects palpated. A 6 x 6 cm C-Qur V patch was placed into the wound and fully opened, ensuring that it laid flat. It was secured into place in four evenly spaced areas with 0 PDS. The fascia was then closed over the mesh with 2-0 PDS in a [id number] fashion x 3. The incision was then infiltrated with additional local anesthetic. The base of the umbilical stalk was sutured to the fascia with a 3-0 Vicryl suture. The deep dermis was approximated with 3-0 Vicryl interrupted sutures to close the empty space. The skin was then closed with a running subcuticular 4-0 Monocryl. Instrument and sponge counts were reported as correct. Dermabond was applied to the wound. A gauze was placed in the umbilicus with tape. The patient was extubated and transferred to the recovery room in stable condition. I attest to the content of the Intraoperative Record and any orders documented therein. Any exceptions are noted below.
--- NOTE | 2018-08-22 10:35 | Discharge Summary ---
Date of Service August 22, 2018 Admission HPI Per Admitting Provider Marcell is a pleasant 38 year-old male who presented to the emergency department today with complaint of sudden abdominal pain and bulge that started last night after lifting a heavy piece of machinery weighing a few hundred pounds. States he was moving the piece of equipment and suddenly felt a popping sensation in his abdomen and then immediate pain. States he had some generalized abdominal pain around his belly button and then slowly concentrated just at the bulge. States he did not notice a bulge before. No previous known hernias other than an inguinal hernia repair as an infant. Denies of any fever, chills, nausea, vomiting, change in bowel habits, diarrhea, constipation, blood in stools, chest pain, shortness of breath, increasing generalized abdominal pain. No prior history of abdominal surgeries. No blood thinning agents. Principal Diagnosis Incarcerated umbilical hernia Discharge Data Allergies Allergy/AdvReac Type Severity Reaction Status Date / Time No Known Allergies Allergy Unverified 08/17/18 12:21 Consultations 08/17/18 15:32 ED Decision to Admit Stat Procedures Performed Operation Date: 08/18/18 09:00 Actual Procedures p Open Umbilical Hernia Repair with Mesh - Gricel Covarrubias MD Ordered Studies 08/17/18 12:11 CT abd pelvis IV con only Stat Hospital Course (1) Incarcerated umbilical hernia: Patient was admitted to medical/surgical floor from emergency department under observation and started on low fiber diet, IV fluids, PO Percocet with breakthrough Morhpine prn pain, activity as tolerated, IV Zofran prn nausea, SCDs for DVT prophylaxis, and NPO after midnight. [facility] [facility]. [place] found to have incarcerated umbilical hernia measuring about 3 cm . Mesh was used in procedure. Patient tolerated procedure well and was transferred to recovery and then back to medical/surgical floor for post op care. Diet was advanced as tolerated. Patient evaluated in the evening of operative day. Vitals stable, pain controlled, tolerating diet without any nausea or vomiting. Patient was discharge home on POD # 0 in stable condition. Total Time Total Time Spent Total Time Spent (In Minutes): 30 Discharge Plan Discharge Items Patient Disposition: Home - Self-Care Reason For Visit: INCARCERATED UMBILICAL HERNIA Discharge Diagnosis: Same Discharge Goals: Decrease discomfort Activity: Per 'Additional Instructions' section Non-emergency contact: Surgeon Call non-emergency contact if: your symptoms worsen, your pain is not controlled, your pain is worsening, your pain is concerning for you, you have a fever, your temperature is above 101, your wound has increased redness and your wound has increased drainage Follow-up/Referrals: Rodger Sommer MD [Primary Care Provider] - Gricel Covarrubias MD [Physician] - (Follow-up in surgical office in 2 weeks, please call office at [phone] to make an appointment) Diet: Regular Addtl Provider Instructions: No heavy lifting over 10 pounds for 6 weeks No strenuous activity until cleared by surgeon No submerging incision underwater for 2 weeks or until healed No driving while taking Narcotic pain medication or until you are pain free You may shower. Remove outer dressing and cotton balls (2) . Gently clean over incision. You have surgical glue on incision. Please do not pick off it will come off on its own. Walking and light activity is encouraged to prevent blood clots from forming in your legs. You will be given prescription for narcotic pain medication (Percocet) for moderate to severe pain. Take as directed. This medication may cause drowsiness and constipation. May take extra strength Tylenol or Ibuprofen as needed for mild pain. Avoid Tylenol while taking Percocet To avoid constipation: drink plenty of liquids daily, avoid foods that constipate, daily walking. You may take OTC stool softener (Colace) daily or twice a day while taking pain medication. If those measures do not work, you may take Miralax or Milk of Magnesia. Follow-up in surgical office in 2 weeks, please call office at [phone] Prescriptions: New oxycodone-acetaminophen [Percocet] 5-325 mg Tablet 1 tab PO Q4H PRN (Reason: pain) Qty: 18 RF: 0 No Action No Known Home Medications RF: 0 Stand-Alone Forms: [facility], Work/School Release (Inpt) Discharge Orders: Discharge Order (Routine); Ordered 08/18/18 Ordered By: Rosi Bennett Admission Data Admit Date/Time: 08/17/18 15:15 Attending Provider: Gricel Covarrubias Admit Provider: Gricel Covarrubias Primary Care Provider: Rodger Sommer Other Providers: Gricel Covarrubias Service: Surgical Services Other Interventions: Discharge Summary Assessment (RN) Last Done: 08/18/18 17:47 Pending Studies at Discharge: No DC Date/Time DO NOT enter until pt leaves facility: 08/18/18 18:39
== END 2018-08-18 18:39 | disposition home or self-care (01) ==
LOC: ED 10:31 → 3W 10:31